=== PATIENT | female | born 1990 | race Two or more races ===

== ENCOUNTER 2017-03-31 06:06 | Emergency (ER) | payer OTHER ==
[~2017-03-31] VITALS: Ht 144.8 cm; Wt 42.5 kg
[2017-03-31 06:11] VITALS: BP 103/65
[2017-03-31] MEDS ORDERED: KETOROLAC 30 MG/1 ML IM ONE (06:30)
[2017-03-31] MEDS ORDERED: OXYcodone/APAP 5/325MG TABLET PO ONE (06:30)
[2017-03-31] MEDS ORDERED: KETOROLAC 30 MG/1 ML ONE (06:38)
[2017-03-31] MEDS ORDERED: OXYcodone/APAP 5/325MG TABLET ONE (06:38)
[2017-03-31] MEDS ORDERED: SODIUM CHLORIDE 0.9% 1,000ML IVBOLUS ONE (07:00)
[2017-03-31 07:01] LABS: ASPARTATE AMINO TRANSFERASE 14 U/L (15-37); BLOOD UREA NITROGEN 11 mg/dL (7-18)
[2017-03-31] MEDS ORDERED: ONDANSETRON 2MG/ML, 2ML ONE (07:08)
[2017-03-31] MEDS ORDERED: KETOROLAC 30 MG/1 ML IVPush ONE (07:30)
[2017-03-31] MEDS ORDERED: ONDANSETRON ODT 4 MG PO ONE (07:30)
[2017-03-31] MEDS ORDERED: OMNIPAQUE 350 MG/ML, 100ML BOTTLE ONE (07:35)
== END 2017-03-31 10:16 | disposition home or self-care (01) ==
LOC: ED 06:49
DX: S16.1XXA Strain of muscle, fascia and tendon at neck level, initial encounter (principal); S20.219A Contusion of unspecified front wall of thorax, initial encounter; Y04.8XXA Assault by other bodily force, initial encounter; Y93.89 Activity, other specified; Y92.89 Other specified places as the place of occurrence of the external cause; Y99.8 Other external cause status
CPT/HCPCS: 36415; 70100; 71020; 72050; 74177; 80053; 84703; 85025; 96361; 96374; 99285; J1885; J7030; Q9967

== ENCOUNTER 2017-04-25 13:03 | Emergency (ER) | payer MEDICAID ==
[~2017-04-25] VITALS: Ht 144.8 cm; Wt 41.5 kg
[~2017-04-25 13:03] MED LIST: PREN1COM15 PO
[2017-04-25 13:05] VITALS: BP 102/64
== END 2017-04-25 15:48 | disposition home or self-care (01) ==
LOC: ED 15:30
DX: O20.0 Threatened abortion (principal)
CPT/HCPCS: 36415; 76801; 84702; 99285

== ENCOUNTER 2017-06-16 12:52 | Emergency (ER) | payer MEDICAID ==
[~2017-06-16] VITALS: Ht 144.8 cm; Wt 41.0 kg
[2017-06-16 12:53] VITALS: BP 112/75
== END 2017-06-16 13:30 | disposition home or self-care (01) ==
LOC: ED 13:25
DX: Z48.01 Encounter for change or removal of surgical wound dressing (principal)
CPT/HCPCS: 99281

== ENCOUNTER 2018-06-03 00:01 | Emergency (ER) | payer BC, MEDICAID ==
[~2018-06-03] VITALS: Ht 144.8 cm; Wt 44.0 kg
[2018-06-03] MEDS ORDERED: CEFTRIAXONE 250 MG IM ONE (00:30)
[2018-06-03] MEDS ORDERED: PROMETHAZINE 25 MG/ML, 1ML IM ONE (00:30)
[2018-06-03] MEDS ORDERED: AZITHROMYCIN 500 MG TABLET PO ONE (00:30)
[2018-06-03] MEDS ORDERED: CEFTRIAXONE 250 MG ONE (00:36)
[2018-06-03] MEDS ORDERED: AZITHROMYCIN 500 MG TABLET ONE (00:36)
[2018-06-03] MEDS ORDERED: PROMETHAZINE 25 MG/ML, 1ML ONE (00:36)
[2018-06-03] MEDS ORDERED: LIDOCAINE-MPF 1%, 5ML ONE (00:36)
[2018-06-03 01:03] LABS: MICROSCOPIC INDICATED
[2018-06-03 01:04] LABS: CULTURE INDICATED? YES; HCG UR SG 1.028 (1.003-1.030)
[2018-06-03 01:49] VITALS: BP 118/67
== END 2018-06-03 01:51 | disposition home or self-care (01) ==
LOC: ED 01:10
DX: N30.00 Acute cystitis without hematuria (principal); G43.119 Migraine with aura, intractable, without status migrainosus
CPT/HCPCS: 81001; 81025; 87086; 87491; 87591; 96372; 99284; J0696; J2550

== ENCOUNTER 2018-07-16 17:15 | Emergency (ER) | payer MEDICAID ==
[~2018-07-16] VITALS: Ht 144.8 cm; Wt 43.5 kg
[2018-07-16 17:18] VITALS: BP 124/77
== END 2018-07-16 18:08 | disposition home or self-care (01) ==
LOC: ED 18:00
DX: L03.213 Periorbital cellulitis (principal); M79.5 Residual foreign body in soft tissue; Z91.011 Allergy to milk products
CPT/HCPCS: 99283

== ENCOUNTER 2018-09-05 17:15 | Emergency (ER) | payer MEDICAID ==
[~2018-09-05] VITALS: Ht 144.8 cm; Wt 43.3 kg
[2018-09-05 17:55] LABS: BASOPHILS # (AUTO) 0.03 x10^3/uL (0-0.1); BASOPHILS % (AUTO) 0 % (0-1); EOSINOPHILS # (AUTO) 0.03 x10^3/uL (0-0.4); EOSINOPHILS % (AUTO) 0 % (1-7); LYMPHOCYTES # (AUTO) 2.89 x10^3/uL (1-3.4); LYMPHOCYTES % (AUTO) 30 % (22-44); MD NO; MEAN CORPUSCULAR HEMOGLOBIN 31.3 pg (27.0-34.8); MEAN CORPUSCULAR HGB CONC 33.8 g/dL (32.4-35.8); MEAN CORPUSCULAR VOLUME 92.7 fL (80-100); MEAN PLATELET VOLUME 8.5 fL (7.4-10.4); MONOCYTES # (AUTO) 0.44 x10^3/uL (0.2-0.8); MONOCYTES % (AUTO) 5 % (2-9); NEUTROPHILS # (AUTO) 6.35 x10^3/uL (1.8-6.8); NEUTROPHILS % (AUTO) 65 % (42-75); PLATELET COUNT 361 x10^3/uL (130-400); RED BLOOD COUNT 4.55 x10^6/uL (3.82-5.3); RED CELL DISTRIBUTION WIDTH 14.1 % (9.6-15.2)
[2018-09-05 18:40] LABS: ALANINE AMINOTRANSFERASE 20 U/L (12-78); ALBUMIN 4.4 g/dL (3.4-5.0); ANION GAP 9 mmol/L (5-15); CALCIUM 9.1 mg/dL (8.5-10.1); CHLORIDE 107 mmol/L (98-107); CREATININE 0.83 mg/dL (0.55-1.02)
[2018-09-05 18:41] LABS: MICROSCOPIC NOT IND
[2018-09-05 18:45] LABS: ALKALINE PHOSPHATASE 59 U/L (45-117); BILIRUBIN,TOTAL 0.6 mg/dL (0.2-1.0); TOTAL PROTEIN 8.2 g/dL (6.4-8.2)
[2018-09-05 18:46] LABS: CULTURE INDICATED? NO
[2018-09-05 19:23] VITALS: BP 102/59
== END 2018-09-05 19:48 | disposition home or self-care (01) ==
LOC: ED 18:14
DX: O26.891 Other specified pregnancy related conditions, first trimester (principal); R10.2 Pelvic and perineal pain; Z3A.01 Less than 8 weeks gestation of pregnancy
CPT/HCPCS: 36415; 76801; 80053; 81003; 83690; 84702; 85025; 86901; 99285

== ENCOUNTER 2018-09-15 15:54 | Emergency (ER) | payer MEDICAID, OTHER ==
[~2018-09-15] VITALS: Ht 144.8 cm; Wt 43.7 kg
[2018-09-15 16:58] LABS: BASOPHILS # (AUTO) 0.02 x10^3/uL (0-0.1); BASOPHILS % (AUTO) 0 % (0-1); EOSINOPHILS # (AUTO) 0.06 x10^3/uL (0-0.4); EOSINOPHILS % (AUTO) 1 % (1-7); LYMPHOCYTES # (AUTO) 2.62 x10^3/uL (1-3.4); LYMPHOCYTES % (AUTO) 36 % (22-44); MD NO; MEAN CORPUSCULAR HEMOGLOBIN 30.4 pg (27.0-34.8); MEAN CORPUSCULAR HGB CONC 32.9 g/dL (32.4-35.8); MEAN CORPUSCULAR VOLUME 92.3 fL (80-100); MEAN PLATELET VOLUME 8.3 fL (7.4-10.4); MONOCYTES # (AUTO) 0.51 x10^3/uL (0.2-0.8); MONOCYTES % (AUTO) 7 % (2-9); NEUTROPHILS # (AUTO) 4.17 x10^3/uL (1.8-6.8); NEUTROPHILS % (AUTO) 57 % (42-75); PLATELET COUNT 309 x10^3/uL (130-400); RED BLOOD COUNT 3.91 x10^6/uL (3.82-5.3); RED CELL DISTRIBUTION WIDTH 14.6 % (9.6-15.2)
[2018-09-15 17:08] LABS: ALANINE AMINOTRANSFERASE 20 U/L (12-78); ANION GAP 9 mmol/L (5-15); CALCIUM 8.6 mg/dL (8.5-10.1); CHLORIDE 108 mmol/L (98-107); CREATININE 0.66 mg/dL (0.55-1.02)
[2018-09-15 17:09] LABS: ALBUMIN 3.6 g/dL (3.4-5.0)
[2018-09-15] MEDS ORDERED: ACETAMINOPHEN 500 MG TABLET ONE (17:09)
[2018-09-15 17:26] LABS: ALKALINE PHOSPHATASE 51 U/L (45-117); BILIRUBIN,TOTAL 0.5 mg/dL (0.2-1.0); TOTAL PROTEIN 6.7 g/dL (6.4-8.2)
[2018-09-15] MEDS ORDERED: ACETAMINOPHEN 500 MG TABLET PO ONE (17:30)
[2018-09-15 18:53] VITALS: BP 100/58
== END 2018-09-15 20:02 | disposition home or self-care (01) ==
LOC: ED 16:27
DX: S13.4XXA Sprain of ligaments of cervical spine, initial encounter (principal); S20.01XA Contusion of right breast, initial encounter; S60.011A Contusion of right thumb without damage to nail, initial encounter; R51 Headache; V43.51XA Car driver injured in collision with sport utility vehicle in traffic accident, initial encounter; Y93.89 Activity, other specified; Y99.8 Other external cause status; Y92.410 Unspecified street and highway as the place of occurrence of the external cause
CPT/HCPCS: 36415; 70450; 72125; 76700; 76801; 80053; 84702; 85025; 86901; 93005; 99284

== ENCOUNTER 2018-09-22 19:28 | Emergency (ER) | payer MEDICAID, OTHER ==
[~2018-09-22] VITALS: Ht 144.8 cm; Wt 43.0 kg
[2018-09-22] MEDS ORDERED: ONDANSETRON ODT 4 MG PO ONE (20:00)
[2018-09-22] MEDS ORDERED: ONDANSETRON ODT 4 MG ONE (20:20)
[2018-09-22 20:25] LABS: MICROSCOPIC NOT IND
[2018-09-22 20:29] LABS: CULTURE INDICATED? NO
[2018-09-22 20:30] LABS: BASOPHILS # (AUTO) 0.04 x10^3/uL (0-0.1); BASOPHILS % (AUTO) 1 % (0-1); EOSINOPHILS # (AUTO) 0.08 x10^3/uL (0-0.4); EOSINOPHILS % (AUTO) 1 % (1-7); LYMPHOCYTES # (AUTO) 2.66 x10^3/uL (1-3.4); LYMPHOCYTES % (AUTO) 31 % (22-44); MD NO; MEAN CORPUSCULAR HEMOGLOBIN 31.5 pg (27.0-34.8); MEAN CORPUSCULAR VOLUME 92.6 fL (80-100); MEAN PLATELET VOLUME 8.5 fL (7.4-10.4); MONOCYTES # (AUTO) 0.48 x10^3/uL (0.2-0.8); MONOCYTES % (AUTO) 6 % (2-9); NEUTROPHILS # (AUTO) 5.23 x10^3/uL (1.8-6.8); NEUTROPHILS % (AUTO) 62 % (42-75); PLATELET COUNT 318 x10^3/uL (130-400); RED BLOOD COUNT 3.97 x10^6/uL (3.82-5.3); RED CELL DISTRIBUTION WIDTH 14.1 % (9.6-15.2)
[2018-09-22 20:37] LABS: ALANINE AMINOTRANSFERASE 18 U/L (12-78); ALBUMIN 3.8 g/dL (3.4-5.0); ANION GAP 9 mmol/L (5-15); CALCIUM 8.4 mg/dL (8.5-10.1); CHLORIDE 106 mmol/L (98-107); CREATININE 0.67 mg/dL (0.55-1.02)
[2018-09-22 20:54] LABS: ALKALINE PHOSPHATASE 51 U/L (45-117); BILIRUBIN,TOTAL 0.4 mg/dL (0.2-1.0)
[2018-09-22 21:37] LABS: CLUE CELLS NONE SEEN (NONE SEEN); WET PREP WBCS MODERATE (FEW)
[2018-09-22] MEDS ORDERED: SODIUM CHLORIDE 0.9% 1,000ML IVBOLUS ONE (22:00)
[2018-09-22 22:21] VITALS: BP 106/50
== END 2018-09-22 22:23 | disposition home or self-care (01) ==
LOC: ED 19:59
DX: O20.0 Threatened abortion (principal); Z3A.08 8 weeks gestation of pregnancy
CPT/HCPCS: 36415; 76801; 80053; 81003; 84702; 85025; 86677; 86901; 87210; 87491; 87591; 87808; 96360; 99284; J7030; Q0162

== ENCOUNTER 2018-10-17 11:15 | Emergency (ER) | payer MEDICAID, OTHER ==
[~2018-10-17] VITALS: Ht 144.8 cm; Wt 44.8 kg
--- NOTE | 2018-10-17 11:50 | NUR ---
Pt reports being 8-9 WKS . Reports having burning with urination and right flank pain. Stated that she has blood in her urine and her urine is stong smelling. Pt is alert, oriented, with NAD. Pt is connected to the monitor. Call light within reach.
[2018-10-17 12:20] LABS: BASOPHILS # (AUTO) 0.04 x10^3/uL (0-0.1); BASOPHILS % (AUTO) 0 % (0-1); EOSINOPHILS # (AUTO) 0.02 x10^3/uL (0-0.4); EOSINOPHILS % (AUTO) 0 % (1-7); LYMPHOCYTES # (AUTO) 1.65 x10^3/uL (1-3.4); LYMPHOCYTES % (AUTO) 14 % (22-44); MD NO; MEAN CORPUSCULAR HEMOGLOBIN 31.2 pg (27.0-34.8); MEAN CORPUSCULAR HGB CONC 33.9 g/dL (32.4-35.8); MEAN CORPUSCULAR VOLUME 92.1 fL (80-100); MEAN PLATELET VOLUME 8.4 fL (7.4-10.4); MONOCYTES # (AUTO) 0.79 x10^3/uL (0.2-0.8); MONOCYTES % (AUTO) 7 % (2-9); NEUTROPHILS # (AUTO) 9.22 x10^3/uL (1.8-6.8); NEUTROPHILS % (AUTO) 79 % (42-75); PLATELET COUNT 295 x10^3/uL (130-400); RED BLOOD COUNT 4.05 x10^6/uL (3.82-5.3); RED CELL DISTRIBUTION WIDTH 14.4 % (9.6-15.2)
--- NOTE | 2018-10-17 12:25 | NUR ---
BREAK RN FOR PRIMARY RN DARREN. PT RESTING IN POSITION OF COMFORT. DENIES NEED TO USE RESTROOM. AWAITING US. VSS. CALL LIGHT IN REACH. FAMILY AT BEDSIDE. ALL NEEDS MET AND ADDRESSED.
[2018-10-17 12:26] LABS: MICROSCOPIC AUTO
[2018-10-17 12:31] LABS: ALBUMIN 3.7 g/dL (3.4-5.0); ANION GAP 6 mmol/L (5-15); CALCIUM 8.5 mg/dL (8.5-10.1); CHLORIDE 104 mmol/L (98-107); CREATININE 0.61 mg/dL (0.55-1.02)
[2018-10-17 12:34] LABS: CULTURE INDICATED? YES
--- NOTE | 2018-10-17 12:41 | NUR ---
BREAK RN. PT TO US
--- NOTE | 2018-10-17 12:54 | NUR ---
BEDSIDE REPORT AND CARE BACK TO PRIMARY RN DARREN Pinon
--- NOTE | 2018-10-17 13:36 | NUR ---
PT IS RESTING IN BED, WATCHING TV WITH FAMILY, RESPIRATIONS EQUAL AND NON LABORED. NAD. PT IS CONNECTED TO THE MONITOR. CALL LIGHT WITHIN REACH.
[2018-10-17] MEDS ORDERED: CEFDINIR 300 MG CAPSULE ONE (13:40)
[2018-10-17] MEDS ORDERED: CEFDINIR 300 MG CAPSULE PO ONE (14:00)
[2018-10-17 14:08] VITALS: BP 95/61
--- NOTE | 2018-10-17 14:09 | NUR ---
Patient/Caregiver given discharge instructions and they have confirmed that they understand the instructions. Patient ambulatory with steady gait.
== END 2018-10-17 14:09 | disposition home or self-care (01) ==
LOC: ED 12:39
DX: O23.11 Infections of bladder in pregnancy, first trimester (principal); G43.909 Migraine, unspecified, not intractable, without status migrainosus; Z3A.09 9 weeks gestation of pregnancy
CPT/HCPCS: 36415; 76801; 80048; 81001; 82040; 84702; 85025; 87077; 87086; 87186; 99284

== ENCOUNTER 2018-11-13 20:25 | Emergency (ER) | payer MEDICAID, OTHER ==
[~2018-11-13] VITALS: Ht 144.8 cm; Wt 46.5 kg
[2018-11-13 20:57] LABS: BASOPHILS # (AUTO) 0.05 x10^3/uL (0-0.1); BASOPHILS % (AUTO) 1 % (0-1); EOSINOPHILS # (AUTO) 0.13 x10^3/uL (0-0.4); EOSINOPHILS % (AUTO) 1 % (1-7); LYMPHOCYTES # (AUTO) 2.71 x10^3/uL (1-3.4); LYMPHOCYTES % (AUTO) 30 % (22-44); MD NO; MEAN CORPUSCULAR HEMOGLOBIN 31.8 pg (27.0-34.8); MEAN CORPUSCULAR HGB CONC 34.3 g/dL (32.4-35.8); MEAN CORPUSCULAR VOLUME 92.6 fL (80-100); MEAN PLATELET VOLUME 8.4 fL (7.4-10.4); MONOCYTES # (AUTO) 0.58 x10^3/uL (0.2-0.8); MONOCYTES % (AUTO) 6 % (2-9); NEUTROPHILS # (AUTO) 5.62 x10^3/uL (1.8-6.8); NEUTROPHILS % (AUTO) 62 % (42-75); PLATELET COUNT 283 x10^3/uL (130-400); RED BLOOD COUNT 3.88 x10^6/uL (3.82-5.3); RED CELL DISTRIBUTION WIDTH 14.8 % (9.6-15.2)
--- NOTE | 2018-11-13 21:30 | NUR ---
THIS IS A 27 YO FEMALE WHO PRESENTS TO THE ER C/O INTERMITTENT CRAMPING/LIGHT BLEEDING. PT CURRENTLY REPORTS MINIMAL BLEEDING. URINE SAMPLE WAS OBTAINED AND SENT TO LAB. PT AWARE WE ARE WAITING FOR LAB/IMAGING RESULTS. CALL LIGHT WITHIN REACH. WILL CONT TO MONITOR PT.
[2018-11-13 21:42] LABS: MICROSCOPIC NOT IND
[2018-11-13 21:47] LABS: CULTURE INDICATED? NO
[2018-11-13 22:22] VITALS: BP 112/46
== END 2018-11-13 22:24 | disposition home or self-care (01) ==
LOC: ED 21:04
DX: O20.0 Threatened abortion (principal); G43.909 Migraine, unspecified, not intractable, without status migrainosus; Z3A.14 14 weeks gestation of pregnancy
CPT/HCPCS: 36415; 76801; 81003; 85025; 99284

== ENCOUNTER 2019-05-12 13:36 | Emergency (ER) | payer MEDICAID ==
[~2019-05-12] VITALS: Ht 144.8 cm; Wt 45.0 kg
[2019-05-12 14:28] LABS: BASOPHILS # (AUTO) 0.02 x10^3/uL (0-0.1); BASOPHILS % (AUTO) 0 % (0-1); EOSINOPHILS # (AUTO) 0.12 x10^3/uL (0-0.4); EOSINOPHILS % (AUTO) 1 % (1-7); LYMPHOCYTES # (AUTO) 1.47 x10^3/uL (1-3.4); LYMPHOCYTES % (AUTO) 13 % (22-44); MD NO; MEAN CORPUSCULAR HEMOGLOBIN 32.3 pg (27.0-34.8); MEAN CORPUSCULAR HGB CONC 32.6 g/dL (32.4-35.8); MEAN CORPUSCULAR VOLUME 98.9 fL (80-100); MEAN PLATELET VOLUME 8.5 fL (7.4-10.4); MONOCYTES # (AUTO) 0.38 x10^3/uL (0.2-0.8); MONOCYTES % (AUTO) 4 % (2-9); NEUTROPHILS # (AUTO) 8.98 x10^3/uL (1.8-6.8); NEUTROPHILS % (AUTO) 82 % (42-75); PLATELET COUNT 336 x10^3/uL (130-400); RED BLOOD COUNT 4.12 x10^6/uL (3.82-5.3); RED CELL DISTRIBUTION WIDTH 13.7 % (9.6-15.2)
[2019-05-12 14:38] LABS: ALBUMIN 3.7 g/dL (3.4-5.0); ANION GAP 5 mmol/L (5-15); CALCIUM 8.7 mg/dL (8.5-10.1); CHLORIDE 107 mmol/L (98-107)
--- NOTE | 2019-05-12 14:44 | NUR ---
INTERNAL SALES: PT TO ROOM FROM LOBBY
[2019-05-12 14:45] LABS: CREATININE 0.89 mg/dL (0.55-1.02)
--- NOTE | 2019-05-12 14:45 | NUR ---
PATIENT ARRIVES TO ER WTIH COMPLAINTS OF PELVIC PAIN AND PAIN WITH URINATION. PATIENT STATES SOME VAG DISCHARGE FOR TWO DAYS. LMP 7/. PATIENT STATES BF HAS RECENTLY TOLD HER HE CHEATED AND SHE'S CONCERNED ABOUT STD
[2019-05-12 15:20] LABS: MICROSCOPIC AUTO
[2019-05-12 15:23] LABS: CULTURE INDICATED? YES
[2019-05-12] MEDS ORDERED: AZITHROMYCIN 500 MG TABLET ONE (15:28)
[2019-05-12] MEDS ORDERED: CEFTRIAXONE 250 MG ONE (15:29)
[2019-05-12] MEDS ORDERED: CEFTRIAXONE 250 MG IM ONE (15:30)
[2019-05-12] MEDS ORDERED: AZITHROMYCIN 500 MG TABLET PO ONE (15:30)
[2019-05-12 15:32] VITALS: BP 115/78
--- NOTE | 2019-05-12 15:41 | NUR ---
WAITING FOR WET PREP RESULTS.
[2019-05-12 15:49] LABS: CLUE CELLS PRESENT (NONE SEEN); WET PREP WBCS FEW (FEW)
== END 2019-05-12 16:22 | disposition home or self-care (01) ==
LOC: ED 16:21
DX: N76.0 Acute vaginitis (principal); N30.00 Acute cystitis without hematuria
CPT/HCPCS: 36415; 80048; 81001; 82040; 84703; 85025; 87077; 87086; 87210; 87491; 87591; 87808; 96372; 99283; J0696; 87186